=== PATIENT | male | born 1945 | race Caucasian/White ===

== ENCOUNTER 2019-11-10 08:02 | Inpatient (IN) | payer MEDICARE, OTHER ==
[~2019-11-10] VITALS: Ht 177.8 cm; Wt 101.2 kg
--- NOTE | 2019-11-10 08:29 | NUR ---
PATIENT CAME IN TO THE ER C/O R SIDED ABDOMINAL PAIN R/T TO FLANK AREA SINCE 11/04/19. oN ROOM AIR, BREATHING EVENLY AND UNLABORED. CONNECTED TO THE MONITOR AND PULSE OX. KEPT COMFORTABLE, WILL CONTINUE TO MONITOR ACCORIDNGLY.
[2019-11-10 08:41] LABS: BASOPHILS % (AUTO) 0.6 % (0.0-2.0); HEMATOCRIT 42 % (39-51); HEMOGLOBIN 14.2 g/dL (13.5-17.5); LYMPHOCYTES # (AUTO) 1.7 /CMM (0.8-4.8); LYMPHOCYTES % (AUTO) 33.9 % (20.0-44.0); MEAN CORPUSCULAR HGB CONC 34 g/dl (31.0-36.0); MEAN CORPUSCULAR VOLUME 95 fL (80-96); MONOCYTES # (AUTO) 0.4 /CMM (0.1-1.30); MONOCYTES % (AUTO) 8.5 % (2.0-12.0); NEUTROPHILS # (AUTO) 2.7 /CMM (1.8-8.9); PLATELET COUNT (AUTO) 147 /CMM (150-450); RED BLOOD CELL COUNT(AUTO) 4.44 MIL/uL (4.5-6.0); WHITE BLOOD COUNT (AUTO) 4.9 K/uL (4.3-11.0)
[2019-11-10 08:44] LABS: CALCIUM, SERUM 9.3 mg/dL (8.5-10.1); CARBON DIOXIDE 29 mmol/L (21-32); CHLORIDE 104 mmol/L (98-107); CREATININE 1.4 mg/dL (0.6-1.3); GLUCOSE 90 mg/dL (74-106); POTASSIUM 3.6 mmol/L (3.5-5.1); SODIUM SERUM 140 mmol/L (136-145); UREA NITROGEN, BLOOD 27 mg/dL (7-18)
[2019-11-10 08:49] LABS: ALANINE AMINOTRANSFERASE 64 U/L (12-78); ALBUMIN 3.6 g/dL (3.4-5.0); ALKALINE PHOSPHATASE 111 U/L (46-116); ASPARTATE AMINOTRANSFERASE 36 U/L (15-37); BILIRUBIN,DIRECT 0.1 mg/dL (0.0-0.2); BILIRUBIN,TOTAL 0.7 mg/dL (0.2-1.0); LIPASE 122 U/L (73-393); TOTAL PROTEIN, SERUM 7.8 g/dL (6.4-8.2)
[2019-11-10 09:02] LABS: APPEARANCE,URINE Clear (CLEAR); BILIRUBIN,URINE Negative (NEGATIVE); BLOOD, URINE Trace-intact Ery/uL (NEGATIVE); COLOR,URINE Yellow (YELLOW); KETONES,URINE Negative (NEGATIVE); LEUKOCYTE ESTERASE ,URINE Negative (NEGATIVE); NITRITE, URINE Negative (NEGATIVE); PROTEIN,URINE Negative (NEGATIVE); UGLUCOSE Negative (NEGATIVE); UROBILINOGEN,URINE 0.2 EU/dL (0.2)
[2019-11-10 09:08] LABS: BACTERIA,URINE Rare /HPF (None Seen); SQUAMOUS EPITHELIAL CELL,UR Rare /HPF (None Seen); WBC,URINE 0-2 /HPF (0-3)
[2019-11-10] MEDS ORDERED: IV NS 0.9% 250 ML IV ONE (09:35)
[2019-11-10] MEDS ORDERED: IOHEXOL-300 100 ML VIAL IV ONE (09:35)
[2019-11-10] MEDS ORDERED: CT SWABBABLE VALVE TRANS SET 1 EA INFUS.SET MC ONE (09:35)
--- NOTE | 2019-11-10 09:45 | NUR ---
wheeled patient to ct scan
--- NOTE | 2019-11-10 09:52 | NUR ---
patient came back from ct
--- NOTE | 2019-11-10 10:38 | NUR ---
CALLED SURGERY SPECIAL EDUCATION SECRETARY DR. MIGUEL [phone]
[2019-11-10] MEDS ORDERED: ATOR40TA PO (10:55)
[2019-11-10] MEDS ORDERED: TEST5GEL2 TD (10:55)
[2019-11-10] MEDS ORDERED: LEVO100T PO (10:55)
[2019-11-10] MEDS ORDERED: BROM2.5T15 PO (10:55)
--- NOTE | 2019-11-10 11:28 | NUR ---
CALLED [facility].
--- NOTE | 2019-11-10 11:32 | NUR ---
CALLED FOR TELE BED
[2019-11-10] MEDS ORDERED: IV D5/0.45 NACL 1,000 ML IV PRN (11:35)
--- NOTE | 2019-11-10 11:50 | NUR ---
GOT BED 116-2
[2019-11-10] MEDS ORDERED: ONDANSETRON HCL/PF 4 MG/2 ML VIAL IVP PRN (12:00)
[2019-11-10] MEDS ORDERED: ZOLPIDEM TARTRATE 5 MG TABLET PO PRN (12:00)
[2019-11-10] MEDS ORDERED: Z GUARD REMEDY 2 OZ OINT TP PRN (12:00)
[2019-11-10] MEDS ORDERED: ACETAMINOPHEN 325 MG TABLET PO PRN (12:00)
[2019-11-10] MEDS ORDERED: MAG HYDROX/AL HYDROX/SIMETH 30 ML UDC PO PRN (12:00)
[2019-11-10] MEDS ORDERED: MAGNESIUM HYDROXIDE 30 ML UDC PO PRN (12:00)
--- NOTE | 2019-11-10 12:00 | NUR ---
NEW BED 327-2
--- NOTE | 2019-11-10 12:22 | NUR ---
Report given to Kathy FUNES for leah.
--- NOTE | 2019-11-10 12:30 | NUR ---
MS RN ADMITTING NOTES PATIENT WHEELED VIA WHEELCHAIR, ACCOMPANIED BY ER STAFF. PATIENT AWAKE, A/O X4, PATIENT AMBULATORY; SKIN IS CLEAN, DRY AND INTACT; BREATHING EVEN AND UNLABORED; NO S/S OF ACUTE RESPIRATORY DISTRESS NOTED; NO S/S OF DISCOMFORT; PATIENT DENIES SOB; R AC #18 INTACT AND PATENT; FLUSHING WELL; RUNNING D5 1/2 NS @ 75ML/HR; VITAL SIGNS STABLE; BP: 143/75, PULSE 62, RR 20; BED LOCKED IN LOWEST POSITION; SAFETY PRECAUTIONS IN PLACE; SIDE RAILS UP X2; CALL LIGHT WITHIN EASY REACH; WILL CONTINUE TO MONITOR.
--- NOTE | 2019-11-10 12:35 | NUR ---
wheeled patient via wheelchair accompanied by EMT in no distress, RN at bedside to assume care.
[2019-11-10 13:23] VITALS: BP 143/75
[2019-11-10] MEDS: HYDROCODONE/APAP 5/325MG 1 EACH TABLET PO PRN (14:13)
--- NOTE | 2019-11-10 14:13 | NUR ---
RN NOTES ADMINISTERED NARCO 5/325 MG PO PRN FOR GENERALIZED PAIN 6/10 PER PATIENT REQUEST PER PAIN SCALE. V/S TAKEN BP 128/74, P-78. PATIENT NPO AT THIS TIME CONSULTATION VIA SURGEON. INFUSING D51/2 NS AT 100 ML/HR ON RIGHT AC AREA INTACT. CALL LIGHT WITHIN TO REACH.
[2019-11-10 16:00] VITALS: BP 157/92
--- NOTE | 2019-11-10 18:32 | NUR ---
MS RN CLOSING NOTES PATIENT RESTING COMFORTABLY IN BED; AWAKE, A/O X4; BREATHING EVEN AND UNLABORED; NO S/S OF ACUTE RESPIRATORY DISTRESS NOTED; R AC #18, D5 1/2 NS @ 75ML/HR RUNNING; IV SITE INTACT AND PATENT; FLUSHING WELL; NO S/S OF REDNESS OR INFILTRATION NOTED. PATIENT DENIES SOB; PATIENT AMBULATORY AND REQUESTED TO USE THE RESTROOM WHILE STAFF IS PRESENT; BED LOCKED IN LOWEST POSITION; SAFETY PRECAUTIONS IN PLACE, SIDE RAILS UP X2; CALL LIGHT WITHIN EASY REACH. WILL ENDORSE CONTINUITY OF CARE TO ONCOMING SHIFT.
--- NOTE | 2019-11-10 18:59 | NUR ---
ms rn notes patient switched from NPO to clear liquid diet per Dr. Mcclure; Dr. Mcclure will see patient tomorrow morning; patient informed; patient verbalized understanding
[2019-11-10 20:00] VITALS: BP 159/100
--- NOTE | 2019-11-10 20:24 | NUR ---
RN NOTES PM SHIFT PATIENT ALERT AND ORIENTED X4, ON ROOM AIR, ABDOMINAL DISCOMFORT, PAIN OF 4/10, ON CLEAR LIQUID DIET, NO VOMITING, TOLERATING CLEAR LIQUID DIET, REQUESTED TO STOP IVF, DRINKING ADEQUATE FLUIDS, KEPT SAFE, WILL CONTINUE TO MONITOR
[2019-11-10 20:44] VITALS: BP 159/100
[2019-11-11 04:27] VITALS: BP 167/82
[2019-11-11] MEDS: HYDROCODONE/APAP 5/325MG 1 EACH TABLET PO PRN ×2 (04:59→19:46)
--- NOTE | 2019-11-11 07:09 | NUR ---
RN NOTES PATIENT ALERT AND ORIENTED X4, ABDOMINAL PAIN 8/10, GIVEN NORCO 1 TAB WITH ADEQUATE RELIEF, TOLERATING CLEAR LIQUID DIET, REFUSED IVF DURING SLEEP, FOR GI CONSULT WITH DR. MIGUEL
--- NOTE | 2019-11-11 07:30 | NUR ---
MS RN NOTES PATIENT REFUSED TO BE CONNECTED TO IV FLUIDS DESPITE OF EXPLANATIONS AND EDUCATIONS GIVEN. PATIENT HAS MEDICATION AT BEDSIDE AND REFUSED TO GIVE TO NURSE DESPITE OF EDUCATION AND EXPLANATIONS GIVEN.
[2019-11-11 07:50] LABS: BASOPHILS % (AUTO) 0.7 % (0.0-2.0); EOSINOPHILS % (AUTO) 3.5 % (0.0-6.0); HEMATOCRIT 43 % (39-51); HEMOGLOBIN 14.4 g/dL (13.5-17.5); LYMPHOCYTES # (AUTO) 1.4 /CMM (0.8-4.8); LYMPHOCYTES % (AUTO) 34.6 % (20.0-44.0); MEAN CORPUSCULAR HGB CONC 34 g/dl (31.0-36.0); MEAN CORPUSCULAR VOLUME 93 fL (80-96); MONOCYTES # (AUTO) 0.4 /CMM (0.1-1.30); MONOCYTES % (AUTO) 9.4 % (2.0-12.0); NEUTROPHILS # (AUTO) 2.1 /CMM (1.8-8.9); NEUTROPHILS % (AUTO) 51.8 % (43.0-81.0); PLATELET COUNT (AUTO) 139 /CMM (150-450); RED BLOOD CELL COUNT(AUTO) 4.57 MIL/uL (4.5-6.0); WHITE BLOOD COUNT (AUTO) 4.1 K/uL (4.3-11.0)
[2019-11-11 08:00] VITALS: BP 141/87
[2019-11-11 08:00] LABS: CALCIUM, SERUM 9.3 mg/dL (8.5-10.1); CREATININE 1.1 mg/dL (0.6-1.3); MAGNESIUM 2.2 mg/dL (1.8-2.4); PHOSPHORUS 2.8 mg/dL (2.5-4.9); POTASSIUM 3.6 mmol/L (3.5-5.1)
[2019-11-11 08:30] LABS: THYROID STIMULATING HORMONE 0.959 uIU/mL (0.358-3.74)
[2019-11-11] MEDS: PANTOPRAZOLE 40 MG TABLET.DR PO SCH (09:30)
--- NOTE | 2019-11-11 10:57 | NUR ---
WOUND CARE CONSULT: PT AMBULATING IN CABRERA AND REFUSED SKIN ASSESSMENT. PT IS CONTINENT PER NURSING STAFF AND SKIN IS INTACT PER REPORT. WILL SEE PRN. CURRENT [place] SCORE IS 22.
--- NOTE | 2019-11-11 13:35 | NUR ---
MS RN NOTES PATIENT SEEN BY DR. MIGUEL AND MD DISCUSSED WITH PATIENT REGARDING COLONOSCOPY EITHER ANJELICA MORNING OR AFTERNOON, BOWEL PREP, DIAGNOSTIC LAPAROSCOPY POSSIBLE EXPLORATORY LAPAROTOMY FOR ANJELICA AND BEING NPO AT MIDNIGHT. PATIENT DISCUSSED WITH MD ABOUT NOT HAVING IVF FLUIDS BECAUSE HE CONSUMES A LARGE AMOUNT OF FLUIDS AND BEING ON NPO AT MIDNIGHT HE PREFERS NOT TO BE ON IVF, PER DR. MIGUEL IT IS OK.
[2019-11-11] MEDS ORDERED: PEG 3350/NA SULF,BICARB,CL/KCL 4,000 ML BOTTLE PO ONE (15:00)
[2019-11-11 16:00] VITALS: BP 157/100
[2019-11-11] MEDS: ATORVASTATIN 40 MG TABLET PO SCH (17:42)
--- NOTE | 2019-11-11 17:42 | NUR ---
MS RN NOTES PATIENT REFUSED LIPITOR, STATES HE HAS HIS OWN MEDICATION AT BEDSIDE AND DOES NOT WANT TO GIVE IT TO THE PHARMACY AND STATES, "I DON'T TRUST THIS HOSPITAL AND I DON'T WANT TO BE CHARGE." DR. GRANADO MADE AWARE.
--- NOTE | 2019-11-11 18:30 | NUR ---
MS RN CLOSING NOTES PATIENT RESTING COMFORTABLY IN BED. ALERT AND ORIENTED X4. NO SOB. DENIES ANY C/O PAIN NOR DISCOMFORT AT THIS TIME. REMINDED PATIENT ABOUT BOWEL PREP AND NPO AT MIDNIGHT. PATIENT VERBALIZES UNDERSTANDING. RT AC # 18 INTACT AND PATENT. PATIENT STILL REFUSES IVF. BED IN LOWEST POSITION, LOCKED. AMBULATORY WITH STEADY GAIT. BED SIDERAILS UP X2. IN NO APPARENT DISTRESS.
[2019-11-11 20:00] VITALS: BP 161/99
--- NOTE | 2019-11-11 20:31 | NUR ---
MS RN OPENING NOTES Patient received resting in bed a/o x4. Stable on RA with breathing even and unlabored, no SOB noted. Patient feeling some abdominal pain and discomfort. Able to ambulate, steady. IV located on R AC #18- refusing IVF. Reminding patient about bowel prep and NPO after midnight, patient understands. Safety precautions in place with bed in lowest position, call light within reach, breaks on, and side rails up x2. Will continue to monitor.
--- NOTE | 2019-11-12 06:39 | NUR ---
RN CLOSING NOTES PATIENT CURRENTLY RESTING IN BED A/O X4, AMBULATORY. STABLE ON RA, NO SOB NOTED WITH BREATHING EVEN AND UNLABORED. NO SIGNS OF ACUTE DISTRESS. NO CURRENT COMPLAITNS OF PAIN OR DISCOMFORT. IV LOCATED ON R AC #18- REUFSED IV FLUIDS THROUGHOUT THE NIGHT. PATIENT WAS KEPT NPO SINCE MIDNIGHT. SAFETY PRECAUTIONS IN PLACE WITH BED IN LOWEST POSITION, CALL LIGHT WITHIN REACH, BREAKS ON, AND SIDE RAILS UP X2. WILL ENDORSE TO ONCOMING SHIFT ABOUT AMADA.
--- NOTE | 2019-11-12 07:10 | NUR ---
MS RN OPENING NOTES RECEIVED PATIENT IN BED, ALERT AND AWAKE ORIENTED X4. NPO STATUS FOR COLONOSCOPY SCHEDULED AT 1230 PM TODAY. PATIENT DENIES ANY C/O PAIN NOR DISCOMFORT AT THIS TIME. RESTING COMFORTABLY IN BED. BED IN LOWEST POSITION, LOCKED. BED ALARM ON. BED SIDERAILS UP X2. CALL LIGHT WITHIN REACH.
[2019-11-12 07:26] LABS: BASOPHILS % (AUTO) 0.5 % (0.0-2.0); EOSINOPHILS % (AUTO) 3.5 % (0.0-6.0); HEMATOCRIT 42 % (39-51); HEMOGLOBIN 13.7 g/dL (13.5-17.5); LYMPHOCYTES # (AUTO) 1.7 /CMM (0.8-4.8); LYMPHOCYTES % (AUTO) 35.2 % (20.0-44.0); MEAN CORPUSCULAR HGB CONC 33 g/dl (31.0-36.0); MEAN CORPUSCULAR VOLUME 94 fL (80-96); MONOCYTES # (AUTO) 0.4 /CMM (0.1-1.30); MONOCYTES % (AUTO) 8.7 % (2.0-12.0); NEUTROPHILS # (AUTO) 2.4 /CMM (1.8-8.9); NEUTROPHILS % (AUTO) 52.1 % (43.0-81.0); PLATELET COUNT (AUTO) 133 /CMM (150-450); WHITE BLOOD COUNT (AUTO) 4.7 K/uL (4.3-11.0)
[2019-11-12] MEDS: PANTOPRAZOLE 40 MG TABLET.DR PO SCH (07:30)
[2019-11-12] MEDS: LEVOTHYROXINE SODIUM 100 MCG TABLET PO SCH (07:30)
[2019-11-12 07:47] LABS: CALCIUM, SERUM 8.7 mg/dL (8.5-10.1); CREATININE 1.2 mg/dL (0.6-1.3); MAGNESIUM 2.2 mg/dL (1.8-2.4); PHOSPHORUS 2.5 mg/dL (2.5-4.9); POTASSIUM 3.8 mmol/L (3.5-5.1)
[2019-11-12 08:00] VITALS: BP 159/83
[2019-11-12] MEDS: BROMOCRIPTINE MESYLATE (2.5MG) 2.5 MG TABLET PO SCH (09:00)
[2019-11-12] MEDS ORDERED: TESTOSTERONE TD SCH (09:00)
--- NOTE | 2019-11-12 12:30 | NUR ---
MS RN NOTES PATIENT OFF UNIT, WENT TO OR
[2019-11-12] MEDS ORDERED: ANESTHESIA TRAY IN PYXIS 1 EA TRAY MC ONE (13:04)
[2019-11-12] MEDS ORDERED: ROCURONIUM BROMIDE 50 MG/5 ML ONE (13:17)
[2019-11-12] MEDS ORDERED: HYDROMORPHONE INJ 2 MG/ML DISP.SYRIN ONE (13:19)
[2019-11-12] MEDS ORDERED: BUPIVACAINE MPF 0.5% W/EPI INJ 30 ML VIAL ONE (14:39)
[2019-11-12] MEDS ORDERED: LIDOCAINE HCL/MPF 1% 30 ML VIAL IJ ONE (14:39)
--- NOTE | 2019-11-12 15:30 | NUR ---
MS RN NOTES PATIENT RETURNED TO UNIT RESTING COMFORTABLY IN BED. PATIENT IS UPSET AND STATED, "THEY DIDN'T FIND ANYTHING."
--- NOTE | 2019-11-12 15:45 | NUR ---
MS RN NOTES PATIENT AMBULATING AROUND UNIT WITH STEADY GAIT.
[2019-11-12 16:00] VITALS: BP 156/94
[2019-11-12] MEDS ORDERED: ONDANSETRON HCL/PF 4 MG/2 ML VIAL IVP PRN (17:30)
[2019-11-12] MEDS ORDERED: HYDROMORPHONE 1 MG/1 ML DISP.SYRIN IV PRN (17:30)
[2019-11-12] MEDS ORDERED: IV D5/0.45 NACL 1,000 ML IV PRN (17:30)
[2019-11-12] MEDS ORDERED: HYDROCODONE/APAP 10/325MG 1 EA TABLET PO PRN (17:30)
[2019-11-12] MEDS: ATORVASTATIN 40 MG TABLET PO SCH (18:00)
[2019-11-12] MEDS: IBUPROFEN 400 MG TABLET PO SCH (18:12)
--- NOTE | 2019-11-12 19:02 | NUR ---
MS RN closing NOTES ALERT AND AWAKE ORIENTED X4. AMBULATED AROUND UNIT WITH STEADY GAIT. NO S/S OF RESPIRATORY DISTRESS. PATIENT DENIES ANY C/O PAIN NOR DISCOMFORT AT THIS TIME. ATE DINNER, REGULAR MARLO WELL. PATIENT STILL UPSET BECAUSE OF COLONOSCOPY AND EXPL LAP DONE AT OR. ABLE TO VERBALIZE NEEDS. IN NO APPARENT DISTRESS.
--- NOTE | 2019-11-12 19:10 | NUR ---
MS RN NOTES PATIENT REMAINS TO AMBULATE IN HALLWAY UNIT. NO S/S OF ACUTE DISTRESS.
--- NOTE | 2019-11-12 19:15 | NUR ---
MS/RN OPENING NOTES: RECEIVED PATIENT IN BED, ALERT AND AWAKE ORIENTED X4. NO SOB NOTED, NO S/S OF ACUTE DISTRESS. PATIENT DENIES ANY C/O PAIN NOR DISCOMFORT AT THIS TIME. RESTING COMFORTABLY IN BED. IV SITE ON THE LEFT AC #18G REFUSED IV FLUIDS, SAFETY MEASURES IN PLACE. BED IN LOWEST POSITION, LOCKED. BED ALARM ON. BED SIDE RAILS UP X2. CALL LIGHT WITHIN REACH. WILL CONTINUE MONITORING PT ACCORDINGLY.
[2019-11-12 20:00] VITALS: BP 137/93
[2019-11-12 22:56] VITALS: BP 137/93
--- NOTE | 2019-11-12 22:59 | NUR ---
MS/RN NOTES: PATIENT COMPLAINED OF ABDOMINAL PAIN LEVEL OF 5/10. ADMINISTERED NORCO 10 MG PO TAB. TOLERATED WELL. PATIENT IN STABLE CONDITION. WILL CONTINUE MONITORING AND REASSESS PATIENT ACCORDINGLY.
[2019-11-13] MEDS: IBUPROFEN 400 MG TABLET PO SCH ×2 (01:42→09:10)
--- NOTE | 2019-11-13 01:43 | NUR ---
MS/RN NOTES: PATIENT REFUSED MOTRIN 800MG PO MED. PER PT, "IT DOESN'T DO ANYTHING. I'D RATHER NOT TAKE IT." PATIENT HAS NO COMPLAINS OF PAIN OR DISCOMFORT AT THIS TIME. IN STABLE CONDITION. WILL CONTINUE MONITORING PATIENT ACCORDINGLY.
--- NOTE | 2019-11-13 06:23 | NUR ---
MS/RN CLOSING NOTES: PATIENT IN BED, SLEEPING. A/OX4. NO SOB NOTED, NO S/S OF ACUTE DISTRESS. PATIENT DENIES ANY C/O PAIN NOR DISCOMFORT AT THIS TIME. RESTING COMFORTABLY IN BED. IV SITE ON THE LEFT AC #18G REFUSED IV FLUIDS, KEPT PT WARM AND COMFORTABLE THROUGHOUT THE SHIFT. ALL NURSING NEEDS MET AND PROVIDED. SAFETY MEASURES KEPT IN PLACE. BED IS IN LOW, LOCKED POSITION WITH HOB ELEVATED. CALL LIGHT WITHIN EASY REACH. WILL ENDORSE TO DAY SHIFT NURSE FOR AMADA.
[2019-11-13 07:07] LABS: EOSINOPHILS % (AUTO) 0.1 % (0.0-6.0); HEMATOCRIT 40 % (39-51); HEMOGLOBIN 13.4 g/dL (13.5-17.5); LYMPHOCYTES % (AUTO) 10.2 % (20.0-44.0); MEAN CORPUSCULAR HGB CONC 33 g/dl (31.0-36.0); MEAN CORPUSCULAR VOLUME 94 fL (80-96); MONOCYTES # (AUTO) 0.4 /CMM (0.1-1.30); MONOCYTES % (AUTO) 4.4 % (2.0-12.0); NEUTROPHILS # (AUTO) 8.7 /CMM (1.8-8.9); NEUTROPHILS % (AUTO) 85.3 % (43.0-81.0); PLATELET COUNT (AUTO) 142 /CMM (150-450); RED BLOOD CELL COUNT(AUTO) 4.24 MIL/uL (4.5-6.0); WHITE BLOOD COUNT (AUTO) 10.2 K/uL (4.3-11.0)
[2019-11-13 07:26] LABS: CALCIUM, SERUM 8.7 mg/dL (8.5-10.1); CARBON DIOXIDE 24 mmol/L (21-32); CHLORIDE 104 mmol/L (98-107); CREATININE 1.5 mg/dL (0.6-1.3); GLUCOSE 100 mg/dL (74-106); MAGNESIUM 2.2 mg/dL (1.8-2.4); PHOSPHORUS 4.1 mg/dL (2.5-4.9); POTASSIUM 4.2 mmol/L (3.5-5.1); SODIUM SERUM 138 mmol/L (136-145); UREA NITROGEN, BLOOD 23 mg/dL (7-18)
[2019-11-13 08:00] VITALS: BP 156/81
--- NOTE | 2019-11-13 08:00 | NUR ---
m/s marketing compliance manager: notes received pt in up and about in room. no c/o pain. [address] no drainage noted. pt still refuses iv fluids to be connected. pt wants to go home as soon as possible as stated. instructed to call for assistance.
[2019-11-13] MEDS: BROMOCRIPTINE MESYLATE (2.5MG) 2.5 MG TABLET PO SCH (09:00)
[2019-11-13] MEDS: PANTOPRAZOLE 40 MG TABLET.DR PO SCH (09:10)
[2019-11-13] MEDS: LEVOTHYROXINE SODIUM 100 MCG TABLET PO SCH (09:12)
[2019-11-13] MEDS ORDERED: BENZ1LOZ58 MM (09:48)
--- NOTE | 2019-11-13 09:50 | NUR ---
m/s senior asset manager: md visit seen and examined by dr. cat with order to discharge home and f/u with pmd and surgeon in one week. pt verbalized md's instructions. pt anxiously wants to leave as soon as possible.
--- NOTE | 2019-11-13 10:05 | NUR ---
m/s associate product manager: notes discharge instructions given to pt and verbalized understanding. h/l removed with tip intact. pt refused photo on abdominal incision. surgical band aid intact with no drainage noted. pt will call a friend to last picker the pt.
--- NOTE | 2019-11-13 10:35 | NUR ---
m/s archery equipment hay sorter: discharged discharge home in stable condition with all valuables and d'c papers via private car accompanied by friend.
== END 2019-11-13 11:19 | disposition home or self-care (01) | DRG 344 ==
LOC: ER 08:02 → MEDSG1 11:54 → MED 12:00
PROVIDERS: ADMIT Student in an Organized Health Care Education/Training Program; ATTEND Student in an Organized Health Care Education/Training Program
PROC: 0DJD8ZZ Inspection of Lower Intestinal Tract, Via Natural or Artificial Opening Endoscopic (ICD-10-PCS; principal; 2019-11-12)
PROC: 0DJD4ZZ Inspection of Lower Intestinal Tract, Percutaneous Endoscopic Approach (ICD-10-PCS; 2019-11-12)
DX: K56.600 Partial intestinal obstruction, unspecified as to cause (principal); N17.0 Acute kidney failure with tubular necrosis; E86.0 Dehydration; H26.9 Unspecified cataract; D69.6 Thrombocytopenia, unspecified; J45.909 Unspecified asthma, uncomplicated; K64.8 Other hemorrhoids; I10 Essential (primary) hypertension; E03.9 Hypothyroidism, unspecified; D72.819 Decreased white blood cell count, unspecified; Z86.018 Personal history of other benign neoplasm; N40.0 Benign prostatic hyperplasia without lower urinary tract symptoms; Z79.899 Other long term (current) drug therapy; E78.5 Hyperlipidemia, unspecified
CPT/HCPCS: 36415; 71045-TC; 80048-TC; 80061-TC; 80076-TC; 81000-TC; 83690-TC; 83735-TC; 84100-TC; 84443-TC; 84484-TC; 85025-TC; 85730-TC; 86850-TC; 87081-TC; 87086-TC; G0378; J0330; J0690; J1100; J1170; J1885; J2405; J2704; J2710; J3490; J7050; Q9967